=== PATIENT | female | born 1980 | race Caucasian/White ===

== ENCOUNTER 2025-02-28 23:19 | Emergency (ER) | payer OTHER, SELFPAY ==
[2025-02-28 23:22] VITALS: BP 143/85; PULSE 91; RESP 18; TEMP 36.9; O2SAT 100; BMI 34.7
[2025-02-28 23:26] VITALS: TEMP 36.9; O2SAT 100
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
[2025-03-01] MEDS: oxyCODONE 5 MG Tablet 10 MG PO (00:14)
[2025-03-01 00:15] VITALS: BP 140/90; PULSE 82; RESP 18; O2SAT 95
[2025-03-01 00:42] VITALS: BP 138/83; PULSE 71; RESP 18; TEMP 36.7; O2SAT 98
== END 2025-03-01 01:48 | disposition home or self-care (01) ==
PROVIDERS: Emergency Provider Emergency Medicine; PCP Nurse Practitioner Family; Visit Provider Emergency Medicine
DX: S42.201A Unspecified fracture of upper end of right humerus, initial encounter for closed fracture (principal); S16.1XXA Strain of muscle, fascia and tendon at neck level, initial encounter; S80.211A Abrasion, right knee, initial encounter; S50.311A Abrasion of right elbow, initial encounter; V18.0XXA Pedal cycle driver injured in noncollision transport accident in nontraffic accident, initial encounter; Y92.410 Unspecified street and highway as the place of occurrence of the external cause
CPT/HCPCS: 70450; 72125; 73030; 99285

== ENCOUNTER → 2025-03-04 | Outpatient (CLI) | payer SELFPAY, OTHER ==
--- NOTE | 2025-03-04 09:29 | CT_ITS ---
PROCEDURE: EXTREMITY UPPER WITHOUT CONTRA 03/04/2025 REASON FOR EXAM: Right shoulder pain following injury. TECHNIQUE: Axial CT images of the right shoulder obtained without intravenous contrast. Coronal and Sagittal reconstruction series were provided. One or more dose reduction techniques were used (e.g., Automated exposure control, adjustment of the mA and/or kV according to patient size, use of iterative reconstruction technique RADIATION DOSE SUMMARY: CTDlvol: 29.75 mGy DLP: 834.5 mGycm COMPARISON: Prior radiographs of the shoulder dated March 01, 2000 25. FINDINGS: Bones: There is evidence of a nondisplaced impacted fracture of the surgical neck of the proximal right humerus. The fracture extends into both the lesser and greater tuberosities. Joints: No evidence of subluxation. Soft Tissues: Soft tissue swelling. Joint effusion. CT/Extremity Upper without Contra IMPRESSION: Nondisplaced impacted fracture of the surgical neck of the proximal right humer us with a the fracture extending to both the lesser and greater tuberosities. Soft tissue swelling. No evidence of dislocation. Reading Location: [id number]
== END | disposition home or self-care (01) ==
PROVIDERS: PCP Nurse Practitioner Family; Referring Provider Orthopaedic Surgery Sports Medicine; Visit Provider Orthopaedic Surgery Sports Medicine
DX: S42.301A Unspecified fracture of shaft of humerus, right arm, initial encounter for closed fracture (principal); X58.XXXA Exposure to other specified factors, initial encounter
CPT/HCPCS: 73200